=== PATIENT | male | born 1935 | race African-American/Black ===

== ENCOUNTER 2019-08-14 13:20 | Inpatient (IN) | payer OTHER ==
[~2019-08-14] VITALS: Ht 177.8 cm; Wt 74.2 kg
[2019-08-16] MEDS ORDERED: PLAVIX 75 MG TA75 MG PO (15:48)
[2019-08-16] MEDS ORDERED: MAALOX ADVANCE355 M1 PO (15:48)
[2019-08-16] MEDS ORDERED: MIRALAX119 GM PO (15:50)
[2019-08-16] MEDS ORDERED: KEPPRA100 MG/1 M PO (15:50)
[2019-08-16] MEDS ORDERED: HYDRALAZINE 5050 MG PO (15:51)
[2019-08-16] MEDS ORDERED: ISOSORBIDE MONO10 MG PO (15:51)
[2019-08-16] MEDS ORDERED: ASA81BEC PO (15:52)
[2019-08-16] MEDS ORDERED: LIPITOR80 MG PO (15:53)
[2019-08-16] MEDS ORDERED: FISH OIL 1,0001 EAC9 PO ×2 (15:54)
[2019-08-16] MEDS ORDERED: PROSCAR 5MG TABL5 M1 PO (15:54)
[2019-08-16] MEDS ORDERED: FUROSEMIDE 20 M20 MG PO (15:56)
[2019-08-16] MEDS ORDERED: NITROSTAT0.4 M1 SUBLING (15:58)
[2019-08-16] MEDS ORDERED: PROTONIX40 M2 PO (15:59)
[2019-08-16] MEDS ORDERED: OXYBUTYNIN ER 55 M1 PO (15:59)
[2019-08-16] MEDS ORDERED: PENTOXIFYLLINE400 MG PO (16:00)
[2019-08-16] MEDS ORDERED: ENTRESTO 49 MG1 EACH PO (16:01)
[2019-08-16] MEDS ORDERED: FLOMAX0.4 MG PO (16:03)
[2019-08-16] MEDS ORDERED: SUPER THERAVIT1 EACH PO (16:03)
[2019-08-16 20:21] VITALS: BP 127/55
[2019-08-17 04:57] VITALS: BP 132/56
[2019-08-17 05:20] LABS: HEMATOCRIT 40.5 % (42.0-52.0); MCH 26.8 pg (26.0-34.0); MCHC 32.1 g/dL (28.0-37.0); MCV 83.4 fL (80.0-100.0); RBC 4.86 mil/uL (4.50-6.00); WBC 3.8 thou/uL (4.0-11.0)
[2019-08-17 06:17] LABS: ALBUMIN 2.6 g/dL (3.4-5.0); CALCIUM 8.1 mg/dL (8.5-10.1); CREATININE 1.4 mg/dL (0.7-1.3); PHOSPHORUS 3.8 mg/dL (2.5-4.9); POTASSIUM 3.8 mmol/L (3.5-5.1)
[2019-08-17 08:10] VITALS: BP 133/66
[2019-08-17 08:41] VITALS: BP 133/66
[2019-08-17 12:04] LABS: CHOLESTEROL 121 mg/dL (<200); HDL CHOLESTEROL 45 mg/dL (>40); LDL CHOLESTEROL 64 mg/dL (<100); TC:HDL 2.7 Ratio (Not establshd); TRIGLYCERIDE 64 mg/dL (<150); VLDL 13 mg/dL (<40)
[2019-08-17 20:00] VITALS: BP 141/72
[2019-08-18 07:41] VITALS: BP 157/100
[2019-08-18 14:27] VITALS: BP 119/66
[2019-08-18 21:00] VITALS: BP 140/59
[2019-08-19 05:41] VITALS: BP 149/83
[2019-08-19 08:30] VITALS: BP 144/77
[2019-08-19 13:30] VITALS: BP 97/52
[2019-08-19 20:20] VITALS: BP 116/82
[2019-08-20 06:10] VITALS: BP 112/52
[2019-08-20 06:49] LABS: ALBUMIN 2.8 g/dL (3.4-5.0); CALCIUM 7.8 mg/dL (8.5-10.1); CREATININE 1.4 mg/dL (0.7-1.3); PHOSPHORUS 3.5 mg/dL (2.5-4.9); POTASSIUM 4.3 mmol/L (3.5-5.1)
[2019-08-20 08:40] LABS: HEMATOCRIT 41.6 % (42.0-52.0); HEMOGLOBIN 13.5 gm/dL (14.0-18.0)
[2019-08-20 18:47] VITALS: BP 142/73
[2019-08-21 07:50] VITALS: BP 113/58
[2019-08-21 19:13] VITALS: BP 125/62
[2019-08-22 08:01] VITALS: BP 147/86
[2019-08-22 19:10] VITALS: BP 123/58
[2019-08-22 20:19] VITALS: BP 172/93
[2019-08-23 08:00] VITALS: BP 124/64
[2019-08-23 12:00] VITALS: BP 124/64
[2019-08-23 19:20] VITALS: BP 136/63
[2019-08-24 04:54] VITALS: BP 133/79
[2019-08-24 05:57] LABS: HEMOGLOBIN 13.2 gm/dL (14.0-18.0); MCH 27.6 pg (26.0-34.0); MCV 83.9 fL (80.0-100.0); PLATELET COUNT 197 thou/uL (150-400); RBC 4.77 mil/uL (4.50-6.00); RDW 20.8 % (10.5-14.5); WBC 5.9 thou/uL (4.0-11.0)
[2019-08-24 06:10] LABS: CALCIUM 8.3 mg/dL (8.5-10.1); CREATININE 1.5 mg/dL (0.7-1.3); MAGNESIUM 1.7 mg/dL (1.8-2.4)
[2019-08-24 08:15] LABS: ABSOLUTE NEUTROPHILS 3.5 thou/uL (1.4-8.2); ANISOCYTOSIS 1+; PLATELET ESTIMATE NORMAL
[2019-08-24] MEDS ORDERED: HYDRALAZINE 10M10 MG PO (08:23)
[2019-08-24] MEDS ORDERED: KEPPRA1000 MG PO (08:23)
[2019-08-24] MEDS ORDERED: PLAVIX 75 MG TA75 MG PO (08:23)
[2019-08-24] MEDS ORDERED: ENTRESTO 49 MG1 EACH PO (12:52)
[2019-08-24] MEDS ORDERED: ISOSORBIDE MONO10 MG PO (12:52)
--- NOTE | 2019-08-25 13:21 | HC ---
[facility] [place] [place] [address] CONSULTATION Name: KATELYN BACK Room #: 503-P [facility] IN M.R.#: [id number] Admission: 08/16/19 Attend Phys: Benny Powers MD Discharge: 08/24/19 Date of : 31 Report #: [id number] THIS REPORT FOR: cc: Lauri Colon MD, K. Steven DO Deutch, Neal B. PhD ~ CC: Benny Kruse DATE OF SERVICE: 08/19/2019 NEUROBEHAVIORAL STATUS EXAM ATTENDING PHYSICIAN: Benny Powers MD OPERATIONS COORDINATOR: Chas Bishop, PhD CLINICAL PRESENTATION: The patient is an 83-year-old -Irish male initially admitted to [facility] with left-sided weakness. The patient was diagnosed with an acute right middle cerebral artery territory ischemic stroke secondary to right internal carotid artery occlusion with additional right M1/M2 thrombus. During his stay, he was reported to have had a left facial twitching and video EEG revealed numerous focal seizures. The patient was started on Keppra and Ativan. He was transferred to [address] [place] [address] for inpatient rehabilitation. 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 A complete description of his medical condition and history can be found in his medical record. Neuropsychological consultation was requested to provide assistance in the assessment of cognitive and emotional status and to provide recommendations and services. Prior to this most recent admission, the patient reports having been living independently with his in their home. He describes having been independent with all instrumental activities of daily living including driving. The patient is a high school graduate with an associate of arts degree. 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 He has 5 children. His family is reported as supportive. TECHNIQUES UTILIZED: Clinical interview, review of medical records, staff consultation and behavioral observation, clock drawing, verbal fluency assessment. [facility] [address] [place] [address] CONSULTATION Name: KATELYN BACK Room #: 503-P [facility] IN ..#: [id number] Admission: 08/16/19 Attend Phys: Benny Powers MD Discharge: 08/24/19 Date of : 31 Report #: [id number] EXAMINATION FINDINGS: The patient was pleasant and cooperative with the assessment. He accurately described the reason for his hospitalization as having had a stroke. He does not report feelings of anxiety or depression, having any symptoms that have followed his stroke, or problems with sleep, appetite, memory or word finding. No previous treatment for anxiety, depression or mood disorder is described. There is no history of alcohol abuse. Performance on the MMSE 2 brief version is in the low average range with a raw score of 13/16, which is a T score of 38 and percentile rank of 12. He was 3/3 for initial registration, 5/5 for orientation to time and place. He was 0/3 for immediate recall of 3 items after a brief time delay and distraction. Performance on the standard version of the MMSE 2 improved with a raw score of 26/30, which is a T score of 48 and percentile rank of 42. He was 4/5 for serial sevens, 2/2 for naming, 1/1 for repetition, 3/3 for comprehension. He could read and follow a single command, write a sentence and copy a simple geometric design. The patient was able to draw a clock and set the hands at a designated time. Letter fluency was within normal limits with a raw score of 17, T score of 39, percentile rank of 14. Category fluency was extremely low with a raw score of 16, T score of 25 and percentile rank of 1. Overall, total fluency was extremely low with a raw score of 33, T score of 26 and percentile rank of 1. The patient is presenting with deficits in immediate recall and decreased insight into deficits. Variability in verbal fluency can suggest inconsistency with executive functioning. 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 RECOMMENDATIONS: The patient will likely need increased assistance upon his return home. Educational information to the patient and to his and family in regard to continued deficits that are associated with the stroke. Assistance in the management of medication will likely be necessary. Driving could be a safety issue and should be discontinued until further recovery from his stroke and driving can be assessed in a more formal way. He is alert and oriented. [facility] [address] [place] [address] CONSULTATION Name: BAKARIMISSAELKATELYN Peterson Room #: 503-P [facility] IN M.R.#: [id number] Admission: 08/16/19 Attend Phys: Benny Powers MD Discharge: 08/24/19 Date of : 31 Report #: [id number] Thank you very much for allowing me to provide the consultation on this patient. <ELECTRONICALLY SIGNED> By: Chas Bishop, PhD 08/25/19 1321 [id number] [id number] Chas Bishop, PhD /nt
--- NOTE | 2019-08-28 09:33 | H ---
[facility] [place] [address] HISTORY AND PHYSICAL Name: KATELYN BACK Room #: 503-P [facility] IN M.R.#: [id number] Admission: 08/16/19 Attend Phys: Benny Powers MD Discharge: 08/24/19 Date of : 31 Report #: [id number] THIS REPORT FOR: cc: Lauri Colon MD, K. Steven DO Smithson, David G. MD ~ CC: Benny Kruse DATE OF SERVICE: 08/16/2019 HISTORY AND PHYSICAL/POST-ADMISSION PHYSICIAN EVALUATION HISTORY OF PRESENT ILLNESS: The patient has been admitted for acute in-hospital inpatient rehabilitation. Please see the full history and physical documentation. He originally was admitted to [facility] with left sided weakness, diagnosed with an acute right MCA territory, ischemic stroke secondary to right internal carotid artery occlusion with additional right M1 and M2 thrombus. He was given dual antiplatelet therapy. He also has some left facial twitching, video EEG revealed numerous focal seizures. He was started on Keppra and Ativan with improvement. The patient has a prior permanent pacemaker for previous rhythm abnormalities and the device was interrogated with no abnormalities. He has been admitted for acute in-hospital inpatient rehabilitation at the [facility] acute inpatient rehab [facility]. Past medical history, allergies, habits, social history are all per the documentation. REVIEW OF SYSTEMS: Notes some dyspepsia. No chest pain, shortness of breath, abdominal discomfort. PHYSICAL EXAMINATION: GENERAL: He is a pleasant 83-year-old -Irish male in no obvious distress. VITAL SIGNS: Last recorded temperature of 36.3, pulse 78, respirations 18, blood pressure 133/66. NEUROLOGIC: He is alert, pleasant, oriented, appears to be a good historian rather, slender 83-year-old -Irish male, right-handed. EOMs appeared full. HEENT: Facies are symmetric. CHEST: Sounded clear to auscultation. CARDIOVASCULAR: Regular rate and rhythm. ABDOMEN: Bowel sounds positive, nontender. GENITOURINARY AND RECTAL: Deferred. EXTREMITIES: He has functional range of motion of both upper extremities. [facility] [address] [place] [address] HISTORY AND PHYSICAL Name: KATELYN BACK Room #: 503-P [facility] IN M.R.#: [id number] Admission: 08/16/19 Attend Phys: Benny Powers MD Discharge: 08/24/19 Date of : 31 Report #: [id number] Strength is grade 4-/5. DTRs are trace to 1. Lower extremities, no focal calf swelling, functional range of motion with strength grade 4-/5. Appears to have some mild decreased coordination. Left upper extremity compared to right as well as left lower extremity compared to right. No obvious focal sensory decrease. Tone appeared to be symmetric. He has been needing assistance with basic functional skills with transfers, sit to stand, standby assistance and gait min assist 175 feet without a device. ASSESSMENT: An 83-year-old -Irish male with the following problem list: 1. Right middle cerebral artery ischemic stroke. 2. Right internal carotid artery occlusion with likely M1, M2 thrombus. 3. Right parasagittal focal motor seizure. 4. Congestive heart failure. 5. Hypertension. 6. Edema. 7. Hyperlipidemia. 8. Indigestion. He is on Tums. Nursing to ask the hospitalist for any further recommendations. 9. History of permanent pacemaker. PLAN: From a postadmission physician evaluation perspective, there are no relevant changes since the preadmission screening. Please see the above review of prior and current medical and functional conditions and comorbidities. Please see the patient's previous and current functional status. As far as the risk of complications, he does have the multiple medical comorbidities as noted above. Initial plan of care involves the interdisciplinary acute inpatient rehabilitation program. Measurable functional goals would be for the patient to become modified independent with transfers, mobility and ADLs and to improve as far as overall cognition and communication to be able to return back to the home setting. Prognosis is reasonably good with estimated length of stay probably at least 7-14 days pending progress. Potential barriers would include his multiple medical comorbidities and decreased functional status. <ELECTRONICALLY SIGNED> By: Benny Powers MD 08/28/19 0933 [id number] Benny Powers MD /nt
--- NOTE | 2019-08-28 09:34 | PLAN ---
[facility] [place] [address] REHAB UNIT PLAN OF CARE Name: KATELYN BACK Room #: 503-P [facility] IN M.R.#: [id number] Admission: 08/16/19 Attend Phys: Benny Powers MD Discharge: 08/24/19 Date of : 31 Report #: [id number] THIS REPORT FOR: //name// CC: Benny Kruse DATE OF SERVICE: 08/18/2019 The overall plan of care is based on the preadmission screen, post-admission physician evaluation and information garnered from therapy assessments. The patient has been working in therapies with transfer standby assistance, gait 175 feet min assist. He has been ambulatory without an assistive device. He has started working on stairs. Lower body dressing is min assist. Speech therapy is involved as well and he is demonstrating moderate cognitive deficits with severe memory deficits. ASSESSMENT: 1. Right MCA ischemic stroke. 2. Right internal carotid artery occlusion. 3. Right parasagittal focal motor seizure. 4. Congestive heart failure. 5. Hypertension. 6. Edema. 7. Hyperlipidemia. 8. Indigestion. 9. History of permanent pacemaker. PLAN: The hospitalist service is following. Note that Gastroenterology has been consulted regarding GERD. 1. Estimated length of stay is probably at least 7-14 days. 2. Medical prognosis is reasonably good. 3. Anticipated interventions includes the interdisciplinary acute inpatient rehabilitation program. 4. Discharge destination would be back to the home setting where he lives with his . 5. Expected therapy by discipline includes PT, OT and speech 1 hour per day each five days a week throughout the duration of the acute in-hospital inpatient rehabilitation stay. <ELECTRONICALLY SIGNED> By: Benny Powers MD 08/28/19 0934 [id number] Benny Powers MD /nt
== END 2019-08-24 13:30 | disposition home health service (06) | DRG 56 ==
PROVIDERS: Hospitalist; Nurse Practitioner; Nurse Practitioner Family; ADMIT Physical Medicine & Rehabilitation; ATTEND Physical Medicine & Rehabilitation
DX: I69.354 Hemiplegia and hemiparesis following cerebral infarction affecting left non-dominant side (principal); I63.311 Cerebral infarction due to thrombosis of right middle cerebral artery; G40.89 Other seizures; I13.0 Hypertensive heart and chronic kidney disease with heart failure and stage 1 through stage 4 chronic kidney disease, or unspecified chronic kidney disease; N17.9 Acute kidney failure, unspecified; E46 Unspecified protein-calorie malnutrition; I50.9 Heart failure, unspecified; E78.5 Hyperlipidemia, unspecified; I65.21 Occlusion and stenosis of right carotid artery; K30 Functional dyspepsia; I35.1 Nonrheumatic aortic (valve) insufficiency; N18.2 Chronic kidney disease, stage 2 (mild); I73.9 Peripheral vascular disease, unspecified; I25.10 Atherosclerotic heart disease of native coronary artery without angina pectoris; I25.5 Ischemic cardiomyopathy; N40.0 Benign prostatic hyperplasia without lower urinary tract symptoms; K21.9 Gastro-esophageal reflux disease without esophagitis; R13.10 Dysphagia, unspecified; R47.02 Dysphasia; Z20.828 Contact with and (suspected) exposure to other viral communicable diseases; Z95.0 Presence of cardiac pacemaker; Z79.82 Long term (current) use of aspirin; Z79.899 Other long term (current) drug therapy; Z95.1 Presence of aortocoronary bypass graft; Z68.23 Body mass index [BMI] 23.0-23.9, adult
CPT/HCPCS: 10112